=== PATIENT | male | born 2000 | race Caucasian/White ===

== ENCOUNTER 2021-05-20 16:58 | Emergency (ER) | payer OTHER ==
[~2021-05-20] VITALS: Ht 185.4 cm; Wt 78.0 kg
[2021-05-20] MEDS ORDERED: ANUSOL-HC25 MG RECTAL (17:42)
[2021-05-20] MEDS ORDERED: POLY119PG PO (17:42)
== END 2021-05-20 18:35 | disposition home or self-care (01) ==
LOC: ER 16:58 → EMR PED 17:06 → ER 17:06 → EMR PED 18:35
DX: K64.4 Residual hemorrhoidal skin tags (principal)

== ENCOUNTER 2023-03-09 16:44 | Emergency (ER) | payer OTHER ==
[~2023-03-09] VITALS: Ht 188 cm; Wt 81.6 kg
[~2023-03-09 16:44] MED LIST: ANUSOL-HC25 MG RECTAL; POLY119PG PO
[2023-03-09 17:59] LABS: URINE APPEARANCE Cloudy; URINE BILIRRUBIN Negative (NEGATIVE); URINE BLOOD Negative; URINE COLOR Yellow; URINE GLUCOSE Negative (NEGATIVE); URINE LEUKOCYTE Moderate; URINE NITRATE Negative; URINE PROTEIN Negative (NEGATIVE)
[2023-03-09 18:03] LABS: URINE BACTERIA 151.1 uL (0.0-1933); URINE RBC 5.8 uL (0.0-20.8); URINE WBC 739.1 uL (0.0-23.2)
[2023-03-09 18:21] LABS: URINE EPITHELIAL CELLS 0.3 uL (0.0-38.8)
== END 2023-03-09 19:11 | disposition home or self-care (01) ==
LOC: ER
PROVIDERS: General Practice
DX: N39.0 Urinary tract infection, site not specified (principal); B99.8 Other infectious disease